=== PATIENT | female | born 1975 | race Caucasian/White ===

== ENCOUNTER 2018-07-15 19:30 | Emergency (ER) | payer OTHER ==
--- NOTE | 2018-07-15 19:50 | EDPHY ---
H & P Smoking Status: Never smoked <Tashia Vargas - Last Filed: 07/15/18 22:33> <PowellDeysi mercedes - Last Filed: 07/15/18 23:51> Time Seen by Provider: 07/15/18 19:49 HPI/ROS: Chief complaint. Left flank pain HPI. Patient is a 43-year-old female with stabbing left flank and left lower quadrant pain for 2 days. Some radiation to the upper left thigh. No urinary frequency or dysuria. She has been drinking quite a bit less fluids has she and her have been moving to a new house. Her pain is not worse with movement. She had nausea yesterday but no vomiting or diarrhea. She has no history of kidney stones. She has had 2 previous UTIs and this feels different. She has a history of an ovarian cyst removed that was benign. She cannot recall which side the ovarian cyst was on. She has no right-sided symptoms. No fever. 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 She is afebrile Eyes: Pupils equal and round no pallor or injection. ENT, Mouth: Mucous membranes are moist. Respiratory: There are no retractions, lungs are clear to auscultation. Cardiovascular: Regular rate and rhythm. Gastrointestinal: Abdomen is soft. She shows me pain and left flank and left mid and left lower quadrants. It is not tender to palpation. No masses. Normal bowel sounds Neurological: Awake and alert, sensory and motor exams grossly normal. Skin: Warm and dry, no rashes. Musculoskeletal: Neck is supple nontender. Extremities symmetrical, full range of motion. Psychiatric: Patient is oriented X 3, there is no agitation. (Tashia Vargas) Constitutional: Initial Vital Signs Temperature (C) 98.1 F 07/15/18 19:46 Heart Rate 66 07/15/18 19:46 Respiratory Rate 16 07/15/18 19:46 Blood Pressure 116/71 07/15/18 19:46 O2 Sat (%) 95 09/27/18 19:46 O2 Delivery Mode Room Air Allergies/Adverse Reactions: cinammon Allergy (Uncoded 10/12/14 09:02) Home Medications: Medication Instructions Recorded Levothyroxine [Synthroid 88 mcg 10/12/14 (*)] Medical Decision Making <Tashia Vargas - Last Filed: 07/15/18 22:33> - Diagnostics Imaging: Discussed imaging studies w/ call center director Radiologist <Deysi Powell - Last Filed: 07/15/18 23:51> - Diagnostics Imaging Results: Imaging Impressions Abdomen/Pelvis Ultrasound 07/15/18 20:18 Impression: 1. Normal kidneys without hydronephrosis. 2. No mass. 3. No postvoid residual. 4. Nonvisualization of the left ureteral jet. 5. Probable 5 mm left intrarenal stone. Findings and recommendations discussed with TASHIA VARGAS at 10:07 PM hour, . Final report concurs with initial preliminary interpretation. Pelvic/Renal Ultrasound 07/15/18 20:18 Impression: Surgically absent left ovary. Otherwise normal pelvic ultrasound. Findings and recommendations discussed with TASHIA VARGAS at 10:07 PM hour, . Final report concurs with initial preliminary interpretation. Pelvic ultrasound reviewed by me and discussed with Dr. Viramontes shows surgically absent left ovary. Follicles in the right ovary. Kidney ultrasound shows no evidence of hydronephrosis. 5 mm stone in the left kid. Non visualization of ureteral jet (Tashia Vargas) Verbal CT read - No hydronephrosis, no stone. No concerning findings. (Deysi Powell) Procedures: Urine dip is negative for blood or leukocytes. Urine test is negative (Tashia Vargas) ED Course/Re-evaluation: IV normal saline CBC and chemistry are normal Re-evaluation 10:30 p.m.. Patient and I discussed imaging and lab results. We discussed treatment plan. We discussed that we still really do not have a diagnosis in that her labs in urine are normal. She has a surgically absent left ovary and an intrarenal kidney stone on the left but were really not able to see whether there is a stone in the ureter or not. There is no hydronephrosis. She agrees to noncontrast CT abdomen and pelvis. (Tashia Vargas) Patient signed out to me awaiting non-contrast CT of abdomen/pelvis reading. Medical record including vital signs, labs, and ultrasound reviewed. Verbal radiology report showed no hydronephrosis, no stones, and no other concerning findings. Moderate amount of stool noted. Results given to patient. The patient will follow up with her primary care provider or return to the emergency room sooner if symptoms change or worsen as discussed. (Deysi Powell) Differential Diagnosis: I considered kidney stone, ovarian cyst, urinary tract infection, pyelonephritis , ectopic (Tashia Vargas) - Data Points Laboratory Results: 07/15/18 20:35 POC Sodium 138 mEq/L mEq/L (135-145) POC Potassium 3.7 mEq/L mEq/L (3.3-5.0) POC Chloride 103.0 mEq/L mEq/L (97-110) POC Total CO2 27 mEq/L mEq/L (22-31) POC BUN 11 mg/dL mg/dL (7-23) POC Creatinine 0.8 mg/dL mg/dL (0.6-1.0) POC Glucose 91 mg/dL mg/dL (70-100) POC Calcium 9.6 mg/dL mg/dL (8.5-10.4) Point of Care Test Results: CBC CBC Collection Date 07/15/18 CBC Collection Time 20:25 WBC 6.9 RBC 4.3 HGB 13.5 HCT 39.1 PLT 267 Neut # 4.4 Neut 63.1 LYMPH # 2.1 LYMPH 30.7 Other WBC # 0.4 Other WBC 6.2 MCV 90.9 Chemistry 07/15/18 20:35 POC Sodium 138 mEq/L mEq/L (135-145) POC Potassium 3.7 mEq/L mEq/L (3.3-5.0) POC Chloride 103.0 mEq/L mEq/L (97-110) POC Total CO2 27 mEq/L mEq/L (22-31) POC BUN 11 mg/dL mg/dL (7-23) POC Creatinine 0.8 mg/dL mg/dL (0.6-1.0) POC Glucose 91 mg/dL mg/dL (70-100) POC Calcium 9.6 mg/dL mg/dL (8.5-10.4) Urine Collection Date 07/15/18 Collection Time 19:50 HCG Results Negative Urine Dip Collection Date 07/15/18 Collection Time 19:50 Specific [place] (1.002-1.030) 1.010 PH (5.0-7.5) 7.0 Leukocytes (Negative) Negative Nitrites (Negative) Negative Protein (Negative) Negative Glucose (Negative) Negative Ketones (Negative) Negative Urobilnogen (0.2-1.0 EU) 0.2 Bilirubin (Negative) Negative Blood (Negative) Negative Departure <Tashia Vargas - Last Filed: 07/15/18 22:33> <Deysi Powell - Last Filed: 07/15/18 23:51> - Departure Disposition: Home, Routine, Self-Care Clinical Impression: Abdominal pain Condition: Good Instructions: Acute Abdominal Pain (ED) Additional Instructions: Follow up with your primary care provider in the next 7 - 10 days. Recheck sooner if symptoms change or worsen as discussed. Referrals: Sury Garcia [Primary Care Provider] - As per Instructions
[2018-07-15 21:47] VITALS: BP 128/81
== END 2018-07-15 23:52 | disposition home or self-care (01) ==
LOC: CED 19:30
DX: R10.32 Left lower quadrant pain (principal)
CPT/HCPCS: 74176-PO; 76770-PO; 76856-PO; 80048-PO